=== PATIENT | female | born 1955 | race Caucasian/White ===

== ENCOUNTER → 2018-11-16 | Outpatient (CLI) | payer OTHER ==
--- NOTE | 2018-11-16 15:27 | REP ---
REASON: Pain. No priors for comparison. Five views were obtained. There is tricompartmental marginal osteophytosis, particularly affecting the medial compartment, where there is mild medial compartmental narrowing and subchondral sclerosis. Patellofemoral joint space narrowing is also noted. There is no acute fracture. IMPRESSION: Chronic changes, as described above. Electronically Signed by Justo Wynn DO 11/16/2018 04:49 P
== END ==
LOC: M WUC 13:12
PROVIDERS: ATTEND Nurse Practitioner Family
DX: M17.11 Unilateral primary osteoarthritis, right knee (principal); M25.761 Osteophyte, right knee; M25.561 Pain in right knee

== ENCOUNTER → 2019-07-06 | Outpatient (CLI) | payer MEDICARE ==
--- NOTE | 2019-07-06 12:27 | REP ---
RIGHT FOOT: Four views of the right foot are performed. No acute fracture or dislocation is seen. There is mild posterior calcaneal spurring and moderate inferior calcaneal spurring. There is a small accessory ossicle along the medial aspect of the navicular bone. There is mild hallux valgus deformity with mild joint space narrowing and subchondral sclerosis at the first metatarsophalangeal joint. There is mild diffuse narrowing of the interphalangeal joints of the 2nd through 5th toes. There are no osseous erosions characteristic of gout. IMPRESSION: Mild degenerative changes as discussed above. Electronically Signed by Jamal Rodriguez MD 07/06/2019 12:37 P
== END ==
LOC: M CLY 11:25
PROVIDERS: ATTEND Nurse Practitioner Family
DX: M77.31 Calcaneal spur, right foot (principal); M19.071 Primary osteoarthritis, right ankle and foot; M25.561 Pain in right knee

== ENCOUNTER → 2019-07-06 | Outpatient (REF) | payer MEDICARE ==
[2019-07-06 16:19] LABS: BASO # 0.1 10^3/uL (0.0-0.2); BASO % 0.7 % (0.0-1.0); EOS # 0.1 10^3/uL (0.0-0.5); EOS % 1.9 % (0.0-3.0); HEMATOCRIT 44.9 % (36.0-47.0); HEMOGLOBIN 14.6 g/dl (12.0-15.5); LYMPH # 2.2 10^3/uL (1.5-5.0); LYMPH % 30.1 % (24.0-44.0); MEAN CORPUSCULAR HEMOGLOBIN 29.3 pg (27.0-33.0); MEAN CORPUSCULAR HGB CONC 32.5 g/dl (32.0-36.5); MONO # 0.5 10^3/uL (0.0-0.8); MONO % 7.3 % (0.0-5.0); NEUTROPHILS # 4.4 10^3/uL (1.5-8.5); NEUTROPHILS % 59.7 % (36.0-66.0); PLATELET COUNT, AUTOMATED 309 10^3/uL (150-450); RED BLOOD COUNT 4.99 10^6/uL (4.00-5.40); WHITE BLOOD COUNT 7.4 10^3/uL (4.0-10.0)
[2019-07-06 16:24] LABS: ALBUMIN 3.8 GM/DL (3.2-5.2); ALT/SGPT 72 U/L (12-78); BILIRUBIN,TOTAL 0.7 MG/DL (0.2-1.0); BLOOD UREA NITROGEN 12 MG/DL (7-18); CALCIUM LEVEL 9.2 MG/DL (8.8-10.2); CARBON DIOXIDE LEVEL 30 MEQ/L (21-32); CHLORIDE LEVEL 103 MEQ/L (98-107); GLOMERULAR FILTRATION RATE > 60.0 (>45); GLUCOSE, FASTING 124 MG/DL (70-100); POTASSIUM SERUM 3.9 MEQ/L (3.5-5.1); SODIUM LEVEL 139 MEQ/L (136-145); TOTAL PROTEIN 7.4 GM/DL (6.4-8.2)
== END ==
LOC: M SFHCCLAY 11:18
PROVIDERS: ATTEND Nurse Practitioner Family
DX: M25.561 Pain in right knee (principal); M1A.0710 Idiopathic chronic gout, right ankle and foot, without tophus (tophi); G89.29 Other chronic pain

== ENCOUNTER → 2019-10-01 | Outpatient (CLI) | payer MEDICARE ==
[~2019-10-01] MED LIST: ALLO100T PO; CVS1CAP2 PO; MULTCAP PO; PHEN30CA2 PO; SYNT112T2 PO; VITA500C19 PO
[2019-10-01 12:13] LABS: BASO # 0.1 10^3/uL (0.0-0.2); BASO % 0.9 % (0.0-1.0); EOS # 0.1 10^3/uL (0.0-0.5); EOS % 2.1 % (0.0-3.0); HEMATOCRIT 46.4 % (36.0-47.0); LYMPH # 2.5 10^3/uL (1.5-5.0); LYMPH % 37.4 % (24.0-44.0); MEAN CORPUSCULAR HEMOGLOBIN 29.4 pg (27.0-33.0); MEAN CORPUSCULAR HGB CONC 32.3 g/dl (32.0-36.5); MEAN CORPUSCULAR VOLUME 90.8 fl (80.0-96.0); MONO # 0.5 10^3/uL (0.0-0.8); MONO % 7.6 % (0.0-5.0); NEUTROPHILS # 3.4 10^3/uL (1.5-8.5); NEUTROPHILS % 51.7 % (36.0-66.0); PLATELET COUNT, AUTOMATED 265 10^3/uL (150-450); RED BLOOD COUNT 5.11 10^6/uL (4.00-5.40); WHITE BLOOD COUNT 6.6 10^3/uL (4.0-10.0)
--- NOTE | 2019-10-01 12:33 | REP ---
Chest x-ray: Two views. History: Hallux valgus. Findings: The lungs are well inflated and clear. The pleural angles are sharp. Heart is not enlarged. Pulmonary vasculature is not increased. No significant bony abnormality. Impression: No active disease. Electronically Signed by Rishi Guadarrama MD 10/01/2019 12:24 P
[2019-10-01 13:08] LABS: BLOOD UREA NITROGEN 10 MG/DL (7-18); CALCIUM LEVEL 9.1 MG/DL (8.8-10.2); CARBON DIOXIDE LEVEL 29 MEQ/L (21-32); CHLORIDE LEVEL 106 MEQ/L (98-107); CREATININE FOR GFR 0.66 MG/DL (0.55-1.30); GLOMERULAR FILTRATION RATE > 60.0 (>45); GLUCOSE, FASTING 95 MG/DL (70-100); SODIUM LEVEL 139 MEQ/L (136-145)
--- NOTE | 2019-10-01 17:27 | ECGEPIP ---
[facility] Test Date: 2019-10-01 Pat Name: KAMRYN AYERS Department: Room: - Gender: Female [employer] Se[employer]: PANCHO : 1955 Requested By: Allan Mccann Order Number: [id number] Reading MD: Gato Puentes Measurements Intervals [place] Rate: 72 P: 51 KS: 137 QRS: 49 QRSD: 86 T: 58 QT: 391 QTc: 430 Interpretive Statements SINUS RHYTHM LOW QRS VOLTAGE IN PRECORDIAL LEADS POSSIBLE ANTERIOR MYOCARDIAL INFARCTION, PROBABLY OLD VS LEAD MISPLACEMENT Electronically Signed on 10-01-2019 17:27:30 EDT by Gato Puentes
== END ==
LOC: M LAB 10:55
PROVIDERS: ATTEND Podiatrist
DX: Z01.818 Encounter for other preprocedural examination (principal); M20.11 Hallux valgus (acquired), right foot; M79.671 Pain in right foot

== ENCOUNTER → 2019-10-12 | Outpatient (CLI) | payer MEDICARE | LOC: M LABSMTC 09:49 | PROVIDERS: ATTEND Anesthesiology | DX: Z01.818 Encounter for other preprocedural examination (principal); Z11.59 Encounter for screening for other viral diseases | CPT/HCPCS: C9803; U0003 ==

== ENCOUNTER 2019-10-15 08:06 | Day surgery (SDC) | payer MEDICARE ==
[~2019-10-15] VITALS: Ht 152.4 cm; Wt 65.8 kg
[~2019-10-15 08:06] MED LIST changes: +LIDOCAINE 2% 100MG/5ML SDV (FOR ANES.) As Ordered ONE; +LR 1,000 ML IV ONE; +MIDAZOLAM INJ 2MG/2ML VIAL (J2250 PER 1MG) As Ordered ONE; +ONDANSETRON 4MG/2ML VIAL As Ordered ONE; +ceFAZolin SOD 2 GM in IV 1 EA IV ONE; +fentaNYL 100 MCG/2 ML INJECTION (J3010) As Ordered ONE; +propofoL 200 MG/20 ML VIAL As Ordered ONE
[2019-10-15] MEDS ORDERED: PHENYLephrine HCL 500 MCG/5 ML (100MCG/ML) SYRINGE (J2370) As Ordered ONE (08:08)
[2019-10-15] MEDS ORDERED: ePHEDrine SULFATE 25 MG/5 ML(5MG/ML) SYRINGE As Ordered ONE (08:19)
[2019-10-15] MEDS ORDERED: propofoL 200 MG/20 ML VIAL As Ordered ONE ×2 (08:25→10:44)
[2019-10-15] MEDS ORDERED: ROPIvacaine 0.5% 30ML INJECTION (J2795 PER 1MG) As Ordered ONE (09:42)
[2019-10-15] MEDS ORDERED: BACITRACIN PWD 50,000 UNITS VIAL As Ordered ONE (09:43)
[2019-10-15] MEDS ORDERED: BUPIVACAINE HCL 0.5% 30 ML VIAL As Ordered ONE (09:43)
[2019-10-15] MEDS ORDERED: LIDOCAINE 2% MDV 20ML VIAL As Ordered ONE (09:43)
[2019-10-15] MEDS ORDERED: NEOSPORIN GU IRRIG 20 ML VIAL As Ordered ONE (09:43)
[2019-10-15] MEDS ORDERED: dexameTHASONE 4 MG/ML 1ML VIAL (J1100 PER 1MG) As Ordered ONE (09:43)
[2019-10-15] MEDS ORDERED: ACETAMINOPHEN 1000MG 100ML IV BTL (OFIRMEV) (J0131 PER 10MG) As Ordered ONE (09:59)
[2019-10-15 12:45] VITALS: BP 127/62
--- NOTE | 2019-10-16 08:51 | REP ---
REASON: Postop, status post bunionectomy. Preoperative exam, 07/06/2019, reviewed. Derotational osteotomy site is seen affixed with a single cancellous screw, which does not breach the joint space. The alignment is near anatomical. There is expected postoperative soft tissue swelling. Small plantar and retrocalcaneal heels spurs are again noted. IMPRESSION: Findings as described above. Electronically Signed by Justo Wynn DO 10/17/2019 08:28 A
== END 2019-10-15 13:00 | disposition home or self-care (01) ==
LOC: M SDC 08:06
PROVIDERS: ATTEND Podiatrist
DX: M20.11 Hallux valgus (acquired), right foot (principal); K21.9 Gastro-esophageal reflux disease without esophagitis; E03.9 Hypothyroidism, unspecified; E05.00 Thyrotoxicosis with diffuse goiter without thyrotoxic crisis or storm; Z79.899 Other long term (current) drug therapy; Z88.2 Allergy status to sulfonamides
CPT/HCPCS: 28296; 73630; 87486; 87581; 87633; 87798; 88300; 97116; 97530; C1713; J0131; J0690; J1100; J2250; J2405; J2795; J3010

== ENCOUNTER → 2019-11-09 | Outpatient (REF) | payer MEDICARE ==
[~2019-11-09] MED LIST changes: -LIDOCAINE 2% 100MG/5ML SDV (FOR ANES.) As Ordered ONE; -LR 1,000 ML IV ONE; -MIDAZOLAM INJ 2MG/2ML VIAL (J2250 PER 1MG) As Ordered ONE; -ONDANSETRON 4MG/2ML VIAL As Ordered ONE; -ceFAZolin SOD 2 GM in IV 1 EA IV ONE; -fentaNYL 100 MCG/2 ML INJECTION (J3010) As Ordered ONE; -propofoL 200 MG/20 ML VIAL As Ordered ONE
== END ==
LOC: EEVIPCON 13:22 → M SFHCCLAY 13:22
PROVIDERS: ATTEND Nurse Practitioner Family
DX: S51.002A Unspecified open wound of left elbow, initial encounter (principal); X58.XXXA Exposure to other specified factors, initial encounter; Y92.89 Other specified places as the place of occurrence of the external cause

== ENCOUNTER → 2020-02-15 | Outpatient (CLI) | payer SELFPAY | LOC: M LABSMTC 10:50 | PROVIDERS: ATTEND Pediatrics | DX: Z20.828 Contact with and (suspected) exposure to other viral communicable diseases (principal) ==

== ENCOUNTER → 2020-04-03 | Outpatient (REF) | payer MEDICARE | LOC: M SFHCCLAY 15:52 | PROVIDERS: ATTEND Nurse Practitioner Family | DX: R30.0 Dysuria (principal) ==

== ENCOUNTER → 2020-04-24 | Outpatient (REF) | payer MEDICARE ==
[2020-04-24 13:29] LABS: ALT/SGPT 47 U/L (12-78); BILIRUBIN,TOTAL 0.4 MG/DL (0.2-1.0); BLOOD UREA NITROGEN 14 MG/DL (7-18); CARBON DIOXIDE LEVEL 29 MEQ/L (21-32); CHLORIDE LEVEL 104 MEQ/L (98-107); GLOMERULAR FILTRATION RATE > 60.0 (>45); GLUCOSE, FASTING 103 MG/DL (70-100); POTASSIUM SERUM 4.1 MEQ/L (3.5-5.1); SODIUM LEVEL 139 MEQ/L (136-145); TOTAL PROTEIN 7.3 GM/DL (6.4-8.2)
== END ==
LOC: M SFHCCLAY 08:23
PROVIDERS: ATTEND Nurse Practitioner Family
DX: E11.9 Type 2 diabetes mellitus without complications (principal)

== ENCOUNTER → 2020-08-11 | Outpatient (REF) | payer MEDICARE ==
[2020-08-11 17:14] LABS: ALBUMIN 3.9 GM/DL (3.2-5.2); ALT/SGPT 32 U/L (12-78); BILIRUBIN,TOTAL 0.7 MG/DL (0.2-1.0); BLOOD UREA NITROGEN 17 MG/DL (7-18); CALCIUM LEVEL 9.2 MG/DL (8.8-10.2); CARBON DIOXIDE LEVEL 29 MEQ/L (21-32); CHLORIDE LEVEL 107 MEQ/L (98-107); CHOLESTEROL LEVEL 147 MG/DL (<200); CHOLESTEROL RISK RATIO 2.261 (<5); CREATININE FOR GFR 0.62 MG/DL (0.55-1.30); FREE T4 2.02 NG/DL (0.76-1.46); GLOMERULAR FILTRATION RATE > 60.0 (>45); GLUCOSE, FASTING 92 MG/DL (70-100); HDL CHOLESTEROL 65 MG/DL (>40); LDL CHOLESTEROL 71 MG/DL (<100); NON-HDL-C 82 MG/DL; POTASSIUM SERUM 4.3 MEQ/L (3.5-5.1); SODIUM LEVEL 140 MEQ/L (136-145); THYROID STIMULATING HORMONE < 0.005 uIU/ML (0.358-3.740); TOTAL PROTEIN 6.9 GM/DL (6.4-8.2); TRIGLYCERIDES LEVEL 57 MG/DL (<150); URIC ACID 5.9 MG/DL (2.6-6.0)
[2020-08-11 17:19] LABS: HEMOGLOBIN A1c 5.6 %
[2020-08-11 17:28] LABS: BASO # 0.1 10^3/uL (0.0-0.2); BASO % 0.9 % (0.0-1.0); EOS # 0.1 10^3/uL (0.0-0.5); EOS % 1.9 % (0.0-3.0); HEMATOCRIT 44.2 % (36.0-47.0); HEMOGLOBIN 14.3 g/dl (12.0-15.5); LYMPH # 2.3 10^3/uL (1.5-5.0); LYMPH % 33.9 % (24.0-44.0); MEAN CORPUSCULAR HEMOGLOBIN 28.8 pg (27.0-33.0); MEAN CORPUSCULAR HGB CONC 32.4 g/dl (32.0-36.5); MEAN CORPUSCULAR VOLUME 89.1 fl (80.0-96.0); MONO # 0.7 10^3/uL (0.0-0.8); MONO % 9.7 % (2.0-8.0); NEUTROPHILS # 3.6 10^3/uL (1.5-8.5); NEUTROPHILS % 53.5 % (36.0-66.0); PLATELET COUNT, AUTOMATED 251 10^3/uL (150-450); RED BLOOD COUNT 4.96 10^6/uL (4.00-5.40); WHITE BLOOD COUNT 6.7 10^3/uL (4.0-10.0)
[2020-08-11 17:33] LABS: CREATININE, URINE 73.9 MG/DL; MALB URINE SIEMENS < 5.0 MG/L; MAU/CREAT RATIO 6.7 MCG/MG (0.0-30.0)
== END ==
LOC: M SFHCCLAY 09:19
PROVIDERS: ATTEND Nurse Practitioner Family
DX: E03.9 Hypothyroidism, unspecified (principal); E11.9 Type 2 diabetes mellitus without complications; M1A.0710 Idiopathic chronic gout, right ankle and foot, without tophus (tophi)

== ENCOUNTER 2020-12-22 09:01 | Outpatient (CLI) | payer MEDICARE ==
[~2020-12-22] VITALS: Ht 152.4 cm; Wt 130.5 kg
[~2020-12-22 09:01] MED LIST changes: +ALBUTEROL 90 MCG/ACT 8GM HFA INHALER INH PRN; +ALBUTEROL SULFATE 2.5 MG/0.5 ML INH NEB SOLN INH PRN; +EPINEPHrine INJ 1 MG/ML 1ML AMP IM PRN; +NS 1,000 ML IV SCH; -PHEN30CA2 PO; +PHEN30CA21 PO; +diphenhydrAMINE 50MG/ML VIAL (J1200) IV PRN; +methylPREDNISolone 125MG 2ML VIAL IV PRN
[2020-12-22 09:15] VITALS: BP 127/60
[2020-12-22] MEDS ORDERED: CASIRIVIMAB/IMDEVIMAB 1,200 MG in NS 250 ML IV ONE (09:25)
[2020-12-22 10:03] VITALS: BP 106/59
[2020-12-22 10:30] VITALS: BP 109/55
[2020-12-22 11:01] VITALS: BP 120/52
[2020-12-22 11:44] VITALS: BP 108/57
[2020-12-22 12:49] VITALS: BP 106/55
== END 2020-12-22 12:49 | disposition home or self-care (01) ==
LOC: M OPCLI4PR 09:01
PROVIDERS: ATTEND Physician Assistant
DX: U07.1 COVID-19 (principal); Z88.2 Allergy status to sulfonamides

== ENCOUNTER → 2021-02-19 | Outpatient (REF) | payer MEDICARE ==
[~2021-02-19] MED LIST changes: -ALBUTEROL 90 MCG/ACT 8GM HFA INHALER INH PRN; -ALBUTEROL SULFATE 2.5 MG/0.5 ML INH NEB SOLN INH PRN; -EPINEPHrine INJ 1 MG/ML 1ML AMP IM PRN; -NS 1,000 ML IV SCH; +PHEN30CA2 PO; -PHEN30CA21 PO; -diphenhydrAMINE 50MG/ML VIAL (J1200) IV PRN; -methylPREDNISolone 125MG 2ML VIAL IV PRN
[2021-02-19 12:16] LABS: HEMOGLOBIN A1c 5.6 %
[2021-02-19 12:26] LABS: ALBUMIN 3.8 GM/DL (3.2-5.2); ALT/SGPT 37 U/L (12-78); BLOOD UREA NITROGEN 15 MG/DL (7-18); CARBON DIOXIDE LEVEL 29 MEQ/L (21-32); CHLORIDE LEVEL 104 MEQ/L (98-107); FREE T4 1.39 NG/DL (0.76-1.46); GLOMERULAR FILTRATION RATE > 60.0 (>45); GLUCOSE, FASTING 102 MG/DL (70-100); POTASSIUM SERUM 4.2 MEQ/L (3.5-5.1); SODIUM LEVEL 139 MEQ/L (136-145); THYROID STIMULATING HORMONE 0.046 uIU/ML (0.358-3.740)
== END ==
LOC: M SFHCCLAY 07:26
PROVIDERS: ATTEND Nurse Practitioner Family
DX: E03.9 Hypothyroidism, unspecified (principal); E11.9 Type 2 diabetes mellitus without complications

== ENCOUNTER → 2021-10-24 | Outpatient (REF) | payer MEDICARE ==
[~2021-10-24] MED LIST changes: -PHEN30CA2 PO; +PHEN30CA21 PO
[2021-10-24 18:53] LABS: ALBUMIN 3.7 GM/DL (3.2-5.2); ALT/SGPT 33 U/L (12-78); BILIRUBIN,TOTAL 0.6 MG/DL (0.2-1.0); BLOOD UREA NITROGEN 12 MG/DL (7-18); CALCIUM LEVEL 9.1 MG/DL (8.8-10.2); CARBON DIOXIDE LEVEL 28 MEQ/L (21-32); CHLORIDE LEVEL 108 MEQ/L (98-107); CREATININE FOR GFR 0.68 MG/DL (0.55-1.30); FREE T4 1.13 NG/DL (0.76-1.46); GLOMERULAR FILTRATION RATE > 60.0 (>45); GLUCOSE, FASTING 98 MG/DL (70-100); POTASSIUM SERUM 4.4 MEQ/L (3.5-5.1); SODIUM LEVEL 142 MEQ/L (136-145)
== END ==
LOC: M SFHCCLAY 10:03
PROVIDERS: ATTEND Nurse Practitioner Family
DX: E03.9 Hypothyroidism, unspecified (principal); E11.9 Type 2 diabetes mellitus without complications

== ENCOUNTER → 2022-04-25 | Outpatient (REF) | payer MEDICARE ==
[2022-04-25 12:32] LABS: BASO # 0.1 10^3/uL (0.0-0.2); BASO % 0.7 % (0.0-1.0); EOS # 0.2 10^3/uL (0.0-0.5); EOS % 1.9 % (0.0-3.0); HEMATOCRIT 43.4 % (36.0-47.0); HEMOGLOBIN 13.9 g/dl (12.0-15.5); LYMPH % 25.3 % (24.0-44.0); MEAN CORPUSCULAR HEMOGLOBIN 29.4 pg (27.0-33.0); MEAN CORPUSCULAR VOLUME 91.9 fl (80.0-96.0); MONO # 0.6 10^3/uL (0.0-0.8); NEUTROPHILS # 5.2 10^3/uL (1.5-8.5); NEUTROPHILS % 64.9 % (36.0-66.0); PLATELET COUNT, AUTOMATED 292 10^3/uL (150-450); RED BLOOD COUNT 4.72 10^6/uL (4.00-5.40)
[2022-04-25 13:00] LABS: CREATININE, URINE 152.2 MG/DL; MAU/CREAT RATIO 2.6 MCG/MG (0.0-30.0)
[2022-04-25 13:03] LABS: ALBUMIN 3.7 G/DL (3.2-5.2); ALKALINE PHOSPHATASE 109 U/L (46-116); ALT/SGPT 24 U/L (7.0-40); AST/SGOT 22 U/L (<34); BILIRUBIN,TOTAL 0.4 MG/DL (0.3-1.2); BLOOD UREA NITROGEN 11 MG/DL (9-23); CALCIUM LEVEL 8.8 MG/DL (8.3-10.6); CARBON DIOXIDE LEVEL 29 MMOL/L (20-31); CHLORIDE LEVEL 104 MMOL/L (98-107); CHOLESTEROL LEVEL 135 MG/DL (<200); CHOLESTEROL RISK RATIO 2.36 (<5); CREATININE FOR GFR 0.73 MG/DL (0.55-1.30); GLOMERULAR FILTRATION RATE > 60.0 (>45); GLUCOSE, FASTING 113 MG/DL (74-106); HDL CHOLESTEROL 57.2 MG/DL (>40); NON-HDL-C 78 MG/DL; POTASSIUM SERUM 4.6 MMOL/L (3.5-5.1); SODIUM LEVEL 142 MMOL/L (136-145); TOTAL PROTEIN 7.1 G/DL (5.7-8.2); TRIGLYCERIDES LEVEL 44 MG/DL (<150)
[2022-04-25 13:05] LABS: FREE T4 1.35 NG/DL (0.89-1.76); THYROID STIMULATING HORMONE 0.987 uIU/ML (0.55-4.78)
[2022-04-25 13:08] LABS: HEMOGLOBIN A1c 6.1 % (4.0-6.0)
== END ==
LOC: M SFHCCLAY 07:27
PROVIDERS: ATTEND Nurse Practitioner Family
DX: Z00.00 Encounter for general adult medical examination without abnormal findings (principal); E03.9 Hypothyroidism, unspecified; E11.9 Type 2 diabetes mellitus without complications

== ENCOUNTER → 2022-07-12 | Outpatient (CLI) | payer MEDICARE | LOC: M CLY 09:42 | PROVIDERS: ATTEND Physician Assistant | DX: R05.9 Cough, unspecified (principal) ==

== ENCOUNTER 2022-08-19 11:47 | Day surgery (SDC) | payer MEDICARE ==
[~2022-08-19] VITALS: Ht 152.4 cm; Wt 70.7 kg
[~2022-08-19 11:47] MED LIST changes: +ATOR40TA75 PO; +CLOB0.0548 VG; +DICL1GEL3 TOP; +DOCU-153 PO; +LEVO88TA3 PO; +METF500T13 PO; +NS 1,000 ML IV ONE; +PANT40TA29 PO; +RA N1TAB PO
[2022-08-19] MEDS ORDERED: fentaNYL 100 MCG/2 ML INJECTION As Ordered ONE (12:20)
[2022-08-19] MEDS ORDERED: propofoL 200 MG/20 ML VIAL As Ordered ONE (12:41)
[2022-08-19] MEDS ORDERED: LIDOCAINE 2% 100MG/5ML SDV (FOR ANES.) As Ordered ONE (12:41)
[2022-08-19 12:55] VITALS: BP 119/58
== END 2022-08-19 13:01 | disposition home or self-care (01) ==
LOC: M OPP 11:47
PROVIDERS: ATTEND Internal Medicine Gastroenterology
DX: R12 Heartburn (principal); Z87.891 Personal history of nicotine dependence; Z79.02 Long term (current) use of antithrombotics/antiplatelets; Z79.84 Long term (current) use of oral hypoglycemic drugs; Z79.890 Hormone replacement therapy; Z79.899 Other long term (current) drug therapy; Z88.2 Allergy status to sulfonamides
CPT/HCPCS: 43235; J3010

== ENCOUNTER → 2022-09-10 | Outpatient (REF) | payer MEDICARE ==
[~2022-09-10] MED LIST changes: -NS 1,000 ML IV ONE
[2022-09-10 19:11] LABS: BLOOD UREA NITROGEN 11 MG/DL (9-23); CREATININE FOR GFR 0.82 MG/DL (0.55-1.30); GLOMERULAR FILTRATION RATE > 60.0 (>45)
== END ==
LOC: M LABDRAWC 17:22
PROVIDERS: ATTEND Physician Assistant Medical
DX: R68.81 Early satiety (principal)

== ENCOUNTER → 2022-09-12 | Outpatient (CLI) | payer MEDICARE ==
[~2022-09-12] MED LIST changes: +GASTROGRAFIN SOLUTION 30ML As Ordered ONE; +ISOVUE-370 76% 100ML VIAL As Ordered ONE
== END ==
LOC: M RAD 13:26
PROVIDERS: ATTEND Physician Assistant Medical
DX: R10.13 Epigastric pain (principal); R68.81 Early satiety; K76.89 Other specified diseases of liver
CPT/HCPCS: 74178; Q9963; Q9967

== ENCOUNTER → 2022-10-24 | Outpatient (REF) | payer MEDICARE ==
[~2022-10-24] MED LIST changes: -GASTROGRAFIN SOLUTION 30ML As Ordered ONE; -ISOVUE-370 76% 100ML VIAL As Ordered ONE
[2022-10-24 13:53] LABS: HEMOGLOBIN A1c 6.3 % (4.0-6.0)
[2022-10-24 14:48] LABS: ALBUMIN 3.6 G/DL (3.2-5.2); ALKALINE PHOSPHATASE 93 U/L (46-116); ALT/SGPT 27 U/L (7.0-40); AST/SGOT 20 U/L (<34); BILIRUBIN,TOTAL 0.8 MG/DL (0.3-1.2); BLOOD UREA NITROGEN 10 MG/DL (9-23); CALCIUM LEVEL 8.8 MG/DL (8.3-10.6); CARBON DIOXIDE LEVEL 28 MMOL/L (20-31); CHLORIDE LEVEL 105 MMOL/L (98-107); CREATININE FOR GFR 0.69 MG/DL (0.55-1.30); GLOMERULAR FILTRATION RATE > 60.0 (>45); GLUCOSE, FASTING 97 MG/DL (74-106); POTASSIUM SERUM 4.1 MMOL/L (3.5-5.1); SODIUM LEVEL 140 MMOL/L (136-145); THYROID STIMULATING HORMONE 0.457 uIU/ML (0.55-4.78); TOTAL PROTEIN 6.8 G/DL (5.7-8.2)
== END ==
LOC: M SFHCCLAY 08:48
PROVIDERS: ATTEND Nurse Practitioner Family
DX: Z00.00 Encounter for general adult medical examination without abnormal findings (principal); E03.9 Hypothyroidism, unspecified; E11.9 Type 2 diabetes mellitus without complications

== ENCOUNTER → 2022-12-05 | Outpatient (REF) | payer MEDICARE ==
[~2022-12-05] MED LIST changes: +DICL100G10 TOP; -DICL1GEL3 TOP
[2022-12-05 18:03] LABS: FREE T4 1.16 NG/DL (0.89-1.76); THYROID STIMULATING HORMONE 4.777 uIU/ML (0.55-4.78)
== END ==
LOC: M SFHCCLAY 10:35
PROVIDERS: ATTEND Nurse Practitioner Family
DX: E03.9 Hypothyroidism, unspecified (principal)

== ENCOUNTER → 2022-12-17 | Outpatient (CLI) | payer MEDICARE | LOC: M CLY 09:31 | PROVIDERS: ATTEND Physician Assistant | DX: M17.11 Unilateral primary osteoarthritis, right knee (principal); M25.461 Effusion, right knee; M76.891 Other specified enthesopathies of right lower limb, excluding foot ==

== ENCOUNTER → 2023-03-28 | Outpatient (REF) | payer MEDICARE | LOC: M SFHCCLAY 16:02 | PROVIDERS: ATTEND Physician Assistant | DX: R30.0 Dysuria (principal); B34.9 Viral infection, unspecified ==

== ENCOUNTER → 2023-04-03 | Outpatient (REF) | payer MEDICARE | LOC: M SFHCCLAY 12:30 | PROVIDERS: ATTEND Physician Assistant | DX: N30.00 Acute cystitis without hematuria (principal) ==

== ENCOUNTER → 2023-04-10 | Outpatient (CLI) | payer MEDICARE ==
[~2023-04-10] MED LIST changes: +BENZ-18 PO; +IBUP-1022 PO; +LEVO75TA4 PO; +NITR100C2 PO
== END ==
LOC: M CLY 11:18
PROVIDERS: ATTEND Physician Assistant Medical
DX: R05.9 Cough, unspecified (principal)

== ENCOUNTER → 2023-04-10 | Outpatient (REF) | payer MEDICARE ==
[2023-04-10 19:49] LABS: LIPASE 48 U/L (12-53)
[2023-04-10 19:51] LABS: AMYLASE 66 U/L (30-118)
[2023-04-10 19:52] LABS: ALBUMIN 3.5 G/DL (3.2-5.2); ALKALINE PHOSPHATASE 120 U/L (46-116); ALT/SGPT 44 U/L (7.0-40); AST/SGOT 24 U/L (<34); BILIRUBIN,TOTAL 0.4 MG/DL (0.3-1.2); BLOOD UREA NITROGEN 11 MG/DL (9-23); CARBON DIOXIDE LEVEL 30 MMOL/L (20-31); CHLORIDE LEVEL 103 MMOL/L (98-107); CREATININE FOR GFR 0.64 MG/DL (0.55-1.30); GLOMERULAR FILTRATION RATE > 60.0 (>45); GLUCOSE, FASTING 111 MG/DL (74-106); POTASSIUM SERUM 4.3 MMOL/L (3.5-5.1); SODIUM LEVEL 138 MMOL/L (136-145); THYROID STIMULATING HORMONE 29.605 uIU/ML (0.55-4.78); TOTAL PROTEIN 7.8 G/DL (5.7-8.2)
[2023-04-10 19:53] LABS: FREE T4 0.93 NG/DL (0.89-1.76)
[2023-04-10 20:08] LABS: BASO # 0.1 10^3/uL (0.0-0.2); BASO % 1.1 % (0.0-1.0); EOS # 0.4 10^3/uL (0.0-0.5); EOS % 4.2 % (0.0-3.0); HEMATOCRIT 42.8 % (36.0-47.0); HEMOGLOBIN 13.6 g/dl (12.0-15.5); LYMPH % 21.4 % (24.0-44.0); MEAN CORPUSCULAR HEMOGLOBIN 29.6 pg (27.0-33.0); MEAN CORPUSCULAR HGB CONC 31.8 g/dl (32.0-36.5); MEAN CORPUSCULAR VOLUME 93.2 fl (80.0-96.0); MONO # 0.6 10^3/uL (0.0-0.8); MONO % 6.8 % (2.0-8.0); NEUTROPHILS # 6.1 10^3/uL (1.5-8.5); PLATELET COUNT, AUTOMATED 478 10^3/uL (150-450); RED BLOOD COUNT 4.59 10^6/uL (4.00-5.40); WHITE BLOOD COUNT 9.3 10^3/uL (4.0-10.0)
== END ==
LOC: M LABDRAWC 17:41
PROVIDERS: ATTEND Physician Assistant Medical
DX: R10.11 Right upper quadrant pain (principal); R53.81 Other malaise

== ENCOUNTER → 2023-04-10 | Outpatient (REF) | payer MEDICARE | LOC: M SFHCCLAY 13:38 | PROVIDERS: ATTEND Physician Assistant | DX: R30.0 Dysuria (principal) ==

== ENCOUNTER 2023-04-11 14:05 | Emergency (ER) | payer MEDICARE ==
[~2023-04-11] VITALS: Ht 152.4 cm; Wt 69.5 kg
[~2023-04-11 14:05] MED LIST changes: -BENZ-18 PO; -IBUP-1022 PO; -LEVO75TA4 PO; -NITR100C2 PO
[2023-04-11] MEDS ORDERED: LEVO75TA4 PO (14:38)
[2023-04-11] MEDS ORDERED: NITR100C2 PO (14:38)
[2023-04-11] MEDS ORDERED: BENZ-18 PO (14:38)
[2023-04-11] MEDS ORDERED: NS 1,000 ML IV ONE (18:55)
[2023-04-11 19:34] LABS: BASO # 0.1 10^3/uL (0.0-0.2); EOS # 0.4 10^3/uL (0.0-0.5); EOS % 3.8 % (0.0-3.0); HEMATOCRIT 43.2 % (36.0-47.0); LYMPH # 2.8 10^3/uL (1.5-5.0); LYMPH % 24.3 % (24.0-44.0); MEAN CORPUSCULAR HGB CONC 32.4 g/dl (32.0-36.5); MEAN CORPUSCULAR VOLUME 92.5 fl (80.0-96.0); MONO # 0.7 10^3/uL (0.0-0.8); MONO % 5.8 % (2.0-8.0); NEUTROPHILS # 7.6 10^3/uL (1.5-8.5); NEUTROPHILS % 64.8 % (36.0-66.0); PLATELET COUNT, AUTOMATED 455 10^3/uL (150-450); RED BLOOD COUNT 4.67 10^6/uL (4.00-5.40); WHITE BLOOD COUNT 11.7 10^3/uL (4.0-10.0)
[2023-04-11] MEDS ORDERED: ISOVUE-370 76% 100ML VIAL As Ordered ONE (19:35)
[2023-04-11 19:52] LABS: ALBUMIN 3.8 G/DL (3.2-5.2); BILIRUBIN,DIRECT 0.2 MG/DL (<0.4); BILIRUBIN,TOTAL 0.6 MG/DL (0.3-1.2); TOTAL PROTEIN 8.3 G/DL (5.7-8.2)
[2023-04-11 22:13] LABS: APPEARANCE, URINE CLEAR (CLEAR); BACTERIA, URINE AUTO NEGATIVE (NEGATIVE); BILIRUBIN, URINE AUTO NEGATIVE (NEGATIVE); BLOOD, URINE BLOOD NEGATIVE (NEGATIVE); COLOR, URINE YELLOW (YELLOW); GLUCOSE, URINE (UA) AUTO NEGATIVE (NEGATIVE); KETONE, URINE AUTO NEGATIVE (NEGATIVE); LEUKOCYTE ESTERASE, URINE AUTO NEGATIVE (NEGATIVE); NITRITE, URINE AUTO NEGATIVE (NEGATIVE); PROTEIN, URINE AUTO NEGATIVE (NEGATIVE); RBC, URINE AUTO 0 /HPF (0-3); SQUAMOUS EPITHELIAL CELL UR AU 1 /HPF (0-6); UROBILINOGEN, URINE AUTO 0.2 mg/dL (0.0-2.0); WBC, URINE AUTO 0 /HPF (0-3)
[2023-04-11 22:18] LABS: SPECIFIC GRAVITY URINE AUTO >1.060 (1.002-1.035)
[2023-04-11] MEDS ORDERED: IBUP-1022 PO (23:11)
[2023-04-11 23:30] VITALS: BP 128/72; TEMP 98.3; O2SAT 97
== END 2023-04-11 23:30 | disposition home or self-care (01) ==
LOC: M ED 14:05
DX: K80.20 Calculus of gallbladder without cholecystitis without obstruction (principal); E11.9 Type 2 diabetes mellitus without complications; E78.5 Hyperlipidemia, unspecified; K76.89 Other specified diseases of liver; Z88.2 Allergy status to sulfonamides; Z79.02 Long term (current) use of antithrombotics/antiplatelets; Z79.4 Long term (current) use of insulin; Z79.899 Other long term (current) drug therapy
CPT/HCPCS: 74177; 80047; 80076; 81001; 83690; 85025; 96360; 96361; 99284; Q9967

== ENCOUNTER → 2023-04-23 | Outpatient (CLI) | payer MEDICARE ==
[~2023-04-23] MED LIST changes: +BENZ-18 PO; +IBUP-1022 PO; +LEVO75TA4 PO; +NITR100C2 PO
== END ==
LOC: M RAD 12:10
PROVIDERS: ATTEND Nurse Practitioner Family
DX: N83.202 Unspecified ovarian cyst, left side (principal)

== ENCOUNTER → 2023-04-24 | Outpatient (REF) | payer MEDICARE ==
[2023-04-24 11:38] LABS: BASO # 0.1 10^3/uL (0.0-0.2); BASO % 0.7 % (0.0-1.0); EOS # 0.3 10^3/uL (0.0-0.5); EOS % 2.7 % (0.0-3.0); HEMATOCRIT 43.7 % (36.0-47.0); HEMOGLOBIN 13.8 g/dl (12.0-15.5); LYMPH # 2.1 10^3/uL (1.5-5.0); LYMPH % 19.9 % (24.0-44.0); MEAN CORPUSCULAR HEMOGLOBIN 29.4 pg (27.0-33.0); MEAN CORPUSCULAR HGB CONC 31.6 g/dl (32.0-36.5); MONO # 0.8 10^3/uL (0.0-0.8); MONO % 7.5 % (2.0-8.0); NEUTROPHILS # 7.4 10^3/uL (1.5-8.5); NEUTROPHILS % 68.9 % (36.0-66.0); PLATELET COUNT, AUTOMATED 339 10^3/uL (150-450); WHITE BLOOD COUNT 10.8 10^3/uL (4.0-10.0)
[2023-04-24 11:50] LABS: HEMOGLOBIN A1c 6.8 % (4.0-6.0)
[2023-04-24 12:08] LABS: ALBUMIN 3.7 G/DL (3.2-5.2); ALKALINE PHOSPHATASE 109 U/L (46-116); ALT/SGPT 25 U/L (7.0-40); AST/SGOT 18 U/L (<34); BILIRUBIN,TOTAL 0.7 MG/DL (0.3-1.2); BLOOD UREA NITROGEN 10 MG/DL (9-23); CALCIUM LEVEL 9.1 MG/DL (8.3-10.6); CARBON DIOXIDE LEVEL 30 MMOL/L (20-31); CHLORIDE LEVEL 102 MMOL/L (98-107); CHOLESTEROL LEVEL 151 MG/DL (<200); CHOLESTEROL RISK RATIO 2.73 (<5); CREATININE FOR GFR 0.68 MG/DL (0.55-1.30); GLOMERULAR FILTRATION RATE > 60.0 (>45); GLUCOSE, FASTING 162 MG/DL (74-106); HDL CHOLESTEROL 55.2 MG/DL (>40); LDL CHOLESTEROL 81.6 MG/DL (<100); NON-HDL-C 95.8 MG/DL; POTASSIUM SERUM 4.2 MMOL/L (3.5-5.1); SODIUM LEVEL 140 MMOL/L (136-145); TRIGLYCERIDES LEVEL 71 MG/DL (<150)
[2023-04-24 12:10] LABS: FREE T4 1.46 NG/DL (0.89-1.76); THYROID STIMULATING HORMONE 2.126 uIU/ML (0.55-4.78)
[2023-04-24 12:20] LABS: CREATININE, URINE 260.5 MG/DL
== END ==
LOC: M SFHCCLAY 08:33
PROVIDERS: ATTEND Nurse Practitioner Family
DX: E03.9 Hypothyroidism, unspecified (principal); E11.9 Type 2 diabetes mellitus without complications

== ENCOUNTER → 2023-04-24 | Outpatient (CLI) | payer MEDICARE ==
[~2023-04-24] MED LIST changes: +PROHANCE 279.3MG/ML 15ML VIAL ONE
== END ==
LOC: M PLAIMG 09:37
PROVIDERS: ATTEND Physician Assistant Medical
DX: Q44.6 Cystic disease of liver (principal); R10.11 Right upper quadrant pain
CPT/HCPCS: 74183; A9576

== ENCOUNTER → 2023-05-08 | Outpatient (CLI) | payer MEDICARE ==
[~2023-05-08] MED LIST changes: -PROHANCE 279.3MG/ML 15ML VIAL ONE
== END ==
LOC: M PLAIMG 12:21
PROVIDERS: ATTEND Nurse Practitioner Family
DX: R05.8 Other specified cough (principal)

== ENCOUNTER → 2023-06-09 | Outpatient (CLI) | payer MEDICARE ==
[~2023-06-09] MED LIST changes: -DOCU-153 PO; +STOO100C30 PO
== END ==
LOC: M RAD 07:49
PROVIDERS: ATTEND Nurse Practitioner Family
DX: R10.11 Right upper quadrant pain (principal); K80.20 Calculus of gallbladder without cholecystitis without obstruction
CPT/HCPCS: 78227; A9537

== ENCOUNTER → 2023-06-25 | Outpatient (CLI) | payer MEDICARE | LOC: M RAD 10:58 | PROVIDERS: ATTEND Nurse Practitioner Family | DX: N83.202 Unspecified ovarian cyst, left side (principal); R10.11 Right upper quadrant pain ==

== ENCOUNTER → 2023-07-31 | Outpatient (CLI) | payer MEDICARE ==
[~2023-07-31] MED LIST changes: +METHACHOLINE KIT (6 VIAL.NEB PREMIX) INH ONE
== END ==
LOC: M CARPUL 09:18
PROVIDERS: ATTEND Internal Medicine Pulmonary Disease
DX: R05.9 Cough, unspecified (principal)
CPT/HCPCS: 94070; 95070; J7674

== ENCOUNTER → 2023-08-22 | Outpatient (REF) | payer MEDICARE ==
[~2023-08-22] MED LIST changes: -METHACHOLINE KIT (6 VIAL.NEB PREMIX) INH ONE
[2023-08-22 17:26] LABS: HEMOGLOBIN A1c 6.4 % (4.0-6.0)
[2023-08-22 17:48] LABS: ALKALINE PHOSPHATASE 99 U/L (46-116); ALT/SGPT 36 U/L (7.0-40); AST/SGOT 29 U/L (<34); BILIRUBIN,TOTAL 0.8 MG/DL (0.3-1.2); BLOOD UREA NITROGEN 15 MG/DL (9-23); CALCIUM LEVEL 9.2 MG/DL (8.3-10.6); CARBON DIOXIDE LEVEL 29 MMOL/L (20-31); CHLORIDE LEVEL 101 MMOL/L (98-107); CREATININE FOR GFR 0.79 MG/DL (0.55-1.30); GLOMERULAR FILTRATION RATE > 60.0 (>45); GLUCOSE, FASTING 98 MG/DL (74-106); POTASSIUM SERUM 4.6 MMOL/L (3.5-5.1); SODIUM LEVEL 138 MMOL/L (136-145); TOTAL PROTEIN 7.5 G/DL (5.7-8.2)
== END ==
LOC: M SFHCCLAY 09:46
PROVIDERS: ATTEND Nurse Practitioner Family
DX: E11.9 Type 2 diabetes mellitus without complications (principal)

== ENCOUNTER → 2023-08-26 | Outpatient (REF) | payer MEDICARE ==
[2023-08-26 17:42] LABS: CARCINOEMBRYONIC ANTIGEN < 2.0 NG/ML (<2.5)
[2023-08-26 17:56] LABS: CA19-9 TUMOR MARKER,CARBOHYDRA 20.5 U/ML (<35.0)
[2023-09-02 18:07] LABS: HE4X 62.4 pmol/L (0.0-96.5); INHIBIN A ULTRASENSITIVE 0.6 pg/mL (.); INHIBIN B <7.0 pg/mL (0.0-16.9)
== END ==
LOC: M PLALAB 09:44
PROVIDERS: ATTEND Obstetrics & Gynecology
DX: N83.202 Unspecified ovarian cyst, left side (principal); R05.3 Chronic cough; E03.9 Hypothyroidism, unspecified; K21.9 Gastro-esophageal reflux disease without esophagitis; K80.20 Calculus of gallbladder without cholecystitis without obstruction; R91.1 Solitary pulmonary nodule; K76.89 Other specified diseases of liver; E11.9 Type 2 diabetes mellitus without complications; Z79.84 Long term (current) use of oral hypoglycemic drugs; Z79.52 Long term (current) use of systemic steroids; Z79.1 Long term (current) use of non-steroidal anti-inflammatories (NSAID); Z79.02 Long term (current) use of antithrombotics/antiplatelets; Z79.890 Hormone replacement therapy; Z88.2 Allergy status to sulfonamides; Z87.891 Personal history of nicotine dependence; Z78.0 Asymptomatic menopausal state; R19.00 Intra-abdominal and pelvic swelling, mass and lump, unspecified site

== ENCOUNTER → 2023-09-19 | Outpatient (CLI) | payer MEDICARE | LOC: M WHC 09:43 | PROVIDERS: ATTEND Obstetrics & Gynecology | DX: N83.209 Unspecified ovarian cyst, unspecified side (principal) ==

== ENCOUNTER → 2023-11-05 | Outpatient (CLI) | payer MEDICARE ==
[2023-11-05 19:07] LABS: BASO # 0.1 10^3/uL (0.0-0.2); BASO % 0.8 % (0.0-1.0); EOS # 0.1 10^3/uL (0.0-0.5); EOS % 1.4 % (0.0-3.0); HEMATOCRIT 45.3 % (36.0-47.0); HEMOGLOBIN 14.4 g/dl (12.0-15.5); LYMPH # 2.1 10^3/uL (1.5-5.0); LYMPH % 32.5 % (24.0-44.0); MEAN CORPUSCULAR HEMOGLOBIN 29.7 pg (27.0-33.0); MEAN CORPUSCULAR HGB CONC 31.8 g/dl (32.0-36.5); MEAN CORPUSCULAR VOLUME 93.4 fl (80.0-96.0); MONO # 0.5 10^3/uL (0.0-0.8); NEUTROPHILS # 3.7 10^3/uL (1.5-8.5); NEUTROPHILS % 57.1 % (36.0-66.0); PLATELET COUNT, AUTOMATED 231 10^3/uL (150-450); RED BLOOD COUNT 4.85 10^6/uL (4.00-5.40); WHITE BLOOD COUNT 6.5 10^3/uL (4.0-10.0)
[2023-11-05 19:25] LABS: ALKALINE PHOSPHATASE 93 U/L (46-116); ALT/SGPT 32 U/L (7.0-40); AST/SGOT 24 U/L (<34); BILIRUBIN,TOTAL 0.9 MG/DL (0.3-1.2); BLOOD UREA NITROGEN 16 MG/DL (9-23); CARBON DIOXIDE LEVEL 29 MMOL/L (20-31); CHLORIDE LEVEL 103 MMOL/L (98-107); CREATININE FOR GFR 0.74 MG/DL (0.55-1.30); GLOMERULAR FILTRATION RATE > 60.0 (>45); GLUCOSE, FASTING 86 MG/DL (74-106); POTASSIUM SERUM 3.9 MMOL/L (3.5-5.1); SODIUM LEVEL 141 MMOL/L (136-145); TOTAL PROTEIN 7.2 G/DL (5.7-8.2)
== END ==
LOC: M LRY 09:07
PROVIDERS: ATTEND Physician Assistant Medical
DX: Q44.6 Cystic disease of liver (principal)

== ENCOUNTER → 2023-11-10 | Outpatient (CLI) | payer MEDICARE | LOC: M WHC 10:16 | PROVIDERS: ATTEND Obstetrics & Gynecology | DX: N83.8 Other noninflammatory disorders of ovary, fallopian tube and broad ligament (principal); Q50.4 Embryonic cyst of fallopian tube ==

== ENCOUNTER → 2023-11-12 | Outpatient (CLI) | payer MEDICARE ==
[2023-11-12 11:31] LABS: CARCINOEMBRYONIC ANTIGEN < 2.0 NG/ML (<2.5)
[2023-11-12 11:46] LABS: CA19-9 TUMOR MARKER,CARBOHYDRA 16.3 U/ML (<35.0)
[2023-11-17 17:09] LABS: INHIBIN A ULTRASENSITIVE 0.8 pg/mL (.); INHIBIN B <7.0 pg/mL (0.0-16.9)
== END ==
LOC: M PLALAB 07:57
PROVIDERS: ATTEND Obstetrics & Gynecology
DX: N83.299 Other ovarian cyst, unspecified side (principal); D39.12 Neoplasm of uncertain behavior of left ovary

== ENCOUNTER → 2023-12-19 | Outpatient (CLI) | payer MEDICARE | LOC: M PLAIMG 12:07 | PROVIDERS: ATTEND Internal Medicine Pulmonary Disease | DX: R91.8 Other nonspecific abnormal finding of lung field (principal); R91.1 Solitary pulmonary nodule ==

== ENCOUNTER → 2023-12-29 | Outpatient (REF) | payer MEDICARE ==
[2023-12-29 17:21] LABS: BASO # 0.1 10^3/uL (0.0-0.2); BASO % 0.8 % (0.0-1.0); EOS # 0.1 10^3/uL (0.0-0.5); EOS % 1.5 % (0.0-3.0); HEMATOCRIT 45.6 % (36.0-47.0); HEMOGLOBIN 14.8 g/dl (12.0-15.5); LYMPH # 1.8 10^3/uL (1.5-5.0); LYMPH % 25.6 % (24.0-44.0); MEAN CORPUSCULAR HEMOGLOBIN 29.7 pg (27.0-33.0); MEAN CORPUSCULAR HGB CONC 32.5 g/dl (32.0-36.5); MEAN CORPUSCULAR VOLUME 91.4 fl (80.0-96.0); MONO # 0.6 10^3/uL (0.0-0.8); MONO % 8.4 % (2.0-8.0); NEUTROPHILS # 4.6 10^3/uL (1.5-8.5); NEUTROPHILS % 63.6 % (36.0-66.0); PLATELET COUNT, AUTOMATED 271 10^3/uL (150-450); RED BLOOD COUNT 4.99 10^6/uL (4.00-5.40); WHITE BLOOD COUNT 7.2 10^3/uL (4.0-10.0)
[2023-12-29 17:46] LABS: CREATININE, URINE 162.1 MG/DL; MALB URINE SIEMENS < 3.0 MG/L; MAU/CREAT RATIO 1.8 MCG/MG (0.0-30.0)
[2023-12-29 17:48] LABS: ALKALINE PHOSPHATASE 96 U/L (46-116); ALT/SGPT 25 U/L (7.0-40); AST/SGOT 18 U/L (<34); BILIRUBIN,TOTAL 0.6 MG/DL (0.3-1.2); BLOOD UREA NITROGEN 12 MG/DL (9-23); CALCIUM LEVEL 9.6 MG/DL (8.3-10.6); CARBON DIOXIDE LEVEL 32 MMOL/L (20-31); CHLORIDE LEVEL 107 MMOL/L (98-107); CHOLESTEROL LEVEL 164 MG/DL (<200); CHOLESTEROL RISK RATIO 2.42 (<5); CREATININE FOR GFR 0.76 MG/DL (0.55-1.30); GLOMERULAR FILTRATION RATE > 60.0 (>45); GLUCOSE, FASTING 100 MG/DL (74-106); HDL CHOLESTEROL 67.5 MG/DL (>40); LDL CHOLESTEROL 84.3 MG/DL (<100); NON-HDL-C 96.5 MG/DL; POTASSIUM SERUM 4.9 MMOL/L (3.5-5.1); SODIUM LEVEL 144 MMOL/L (136-145); TOTAL PROTEIN 7.5 G/DL (5.7-8.2); TRIGLYCERIDES LEVEL 61 MG/DL (<150)
[2023-12-29 17:49] LABS: FREE T4 1.59 NG/DL (0.89-1.76)
[2023-12-29 17:51] LABS: THYROID STIMULATING HORMONE 1.839 uIU/ML (0.55-4.78)
[2023-12-29 17:55] LABS: HEMOGLOBIN A1c 5.9 % (4.0-6.0)
== END ==
LOC: M SFHCCLAY 10:17
PROVIDERS: ATTEND Nurse Practitioner Family
DX: E11.9 Type 2 diabetes mellitus without complications (principal); E03.9 Hypothyroidism, unspecified; N83.202 Unspecified ovarian cyst, left side; K21.9 Gastro-esophageal reflux disease without esophagitis

== ENCOUNTER → 2024-01-05 | Outpatient (REF) | payer MEDICARE | LOC: M PLALAB 16:04 | PROVIDERS: ATTEND Obstetrics & Gynecology | DX: N94.10 Unspecified dyspareunia (principal) ==

== ENCOUNTER → 2024-01-09 | Outpatient (CLI) | payer MEDICARE ==
[~2024-01-09] MED LIST changes: +PROHANCE 279.3MG/ML 15ML VIAL ONE; -VITA500C19 PO; +VITA500C22 PO
== END ==
LOC: M PLAIMG 14:17
PROVIDERS: ATTEND Obstetrics & Gynecology
DX: N83.299 Other ovarian cyst, unspecified side (principal)
CPT/HCPCS: 72197; A9576

== ENCOUNTER → 2024-04-16 | Outpatient (REF) | payer MEDICARE ==
[~2024-04-16] MED LIST changes: -PROHANCE 279.3MG/ML 15ML VIAL ONE
[2024-04-16 14:42] LABS: BASO # 0.1 10^3/uL (0.0-0.2); BASO % 0.7 % (0.0-1.0); EOS # 0.3 10^3/uL (0.0-0.5); EOS % 3.5 % (0.0-3.0); HEMATOCRIT 43.7 % (36.0-47.0); HEMOGLOBIN 14.4 g/dl (12.0-15.5); LYMPH # 1.8 10^3/uL (1.5-5.0); LYMPH % 24.6 % (24.0-44.0); MEAN CORPUSCULAR HEMOGLOBIN 29.5 pg (27.0-33.0); MEAN CORPUSCULAR VOLUME 89.5 fl (80.0-96.0); MONO # 0.5 10^3/uL (0.0-0.8); MONO % 6.8 % (2.0-8.0); NEUTROPHILS # 4.6 10^3/uL (1.5-8.5); NEUTROPHILS % 64.1 % (36.0-66.0); PLATELET COUNT, AUTOMATED 269 10^3/uL (150-450); RED BLOOD COUNT 4.88 10^6/uL (4.00-5.40); WHITE BLOOD COUNT 7.1 10^3/uL (4.0-10.0)
[2024-04-16 14:44] LABS: ALBUMIN 3.9 G/DL (3.2-5.2); ALKALINE PHOSPHATASE 99 U/L (35-104); ALT/SGPT 59 U/L (7.0-40); AST/SGOT 34 U/L (<34); BILIRUBIN,TOTAL 0.7 MG/DL (0.3-1.2); BLOOD UREA NITROGEN 11 MG/DL (9-23); CALCIUM LEVEL 9.1 MG/DL (8.3-10.6); CARBON DIOXIDE LEVEL 29 MMOL/L (20-31); CHLORIDE LEVEL 102 MMOL/L (98-107); CREATININE FOR GFR 0.72 MG/DL (0.55-1.30); GLOMERULAR FILTRATION RATE > 60.0 (>45); GLUCOSE, FASTING 123 MG/DL (74-106); POTASSIUM SERUM 4.1 MMOL/L (3.5-5.1); SODIUM LEVEL 141 MMOL/L (136-145); TOTAL PROTEIN 7.6 G/DL (5.7-8.2)
== END ==
LOC: M LABDRAWC 13:14
PROVIDERS: ATTEND Registered Nurse General Practice
DX: R79.89 Other specified abnormal findings of blood chemistry (principal)

== ENCOUNTER → 2024-07-16 | Outpatient (REF) | payer MEDICARE ==
[2024-07-16 17:33] LABS: HEMOGLOBIN A1c 6.6 % (4.0-6.0)
[2024-07-16 17:34] LABS: ALBUMIN 4.1 G/DL (3.2-5.2); BILIRUBIN,TOTAL 0.6 MG/DL (0.3-1.2); CALCIUM LEVEL 9.6 MG/DL (8.3-10.6); CREATININE FOR GFR 0.77 MG/DL (0.55-1.30); GLOMERULAR FILTRATION RATE 82.9 (>39); POTASSIUM SERUM 4.4 MMOL/L (3.5-5.1); TOTAL PROTEIN 7.6 G/DL (5.7-8.2)
== END ==
LOC: M SFHCCLAY 11:11
PROVIDERS: ATTEND Nurse Practitioner Family
DX: E11.9 Type 2 diabetes mellitus without complications (principal)

== ENCOUNTER → 2024-11-25 | Outpatient (CLI) | payer MEDICARE ==
[~2024-11-25] MED LIST changes: -IBUP-1022 PO; +IBUP600T42 PO
== END ==
LOC: M RAD 15:12
PROVIDERS: ATTEND Obstetrics & Gynecology
DX: N83.202 Unspecified ovarian cyst, left side (principal)

== ENCOUNTER → 2025-01-20 | Outpatient (REF) | payer MEDICARE ==
[2025-01-20 18:04] LABS: BASO # 0.1 10^3/uL (0.0-0.2); BASO % 0.8 % (0.0-1.0); EOS # 0.1 10^3/uL (0.0-0.5); EOS % 1.4 % (0.0-3.0); LYMPH # 2.2 10^3/uL (1.5-5.0); LYMPH % 27.6 % (24.0-44.0); MONO # 0.6 10^3/uL (0.0-0.8); MONO % 7.6 % (2.0-8.0); NEUTROPHILS # 4.9 10^3/uL (1.5-8.5); NEUTROPHILS % 62.2 % (36.0-66.0); PLATELET COUNT, AUTOMATED 283 10^3/uL (150-450)
[2025-01-20 18:31] LABS: ALT/SGPT 43.0 U/L (7.0-40); AST/SGOT 29.0 U/L (<34); CALCIUM LEVEL 9.1 MG/DL (8.3-10.6); CARBON DIOXIDE LEVEL 30.0 MMOL/L (20-31); CHLORIDE LEVEL 103.0 MMOL/L (98-107); CHOLESTEROL LEVEL 143.0 MG/DL (<200); CHOLESTEROL RISK RATIO 2.16 (<5); CREATININE FOR GFR 0.94 MG/DL (0.55-1.30); GLOMERULAR FILTRATION RATE 65.3 (>39); LDL CHOLESTEROL 63.9 MG/DL (<100); MAGNESIUM LEVEL 2.0 MG/DL (1.8-2.4); NON-HDL-C 77.1 MG/DL; POTASSIUM SERUM 4.9 MMOL/L (3.5-5.1); SODIUM LEVEL 144.0 MMOL/L (136-145); TRIGLYCERIDES LEVEL 66.0 MG/DL (<150)
[2025-01-20 18:32] LABS: FREE T4 1.57 NG/DL (0.89-1.76)
[2025-01-20 18:50] LABS: CREATININE, URINE 228.5 MG/DL; MALB URINE SIEMENS 4.0 MG/L; MAU/CREAT RATIO 1.7 MCG/MG (0.0-30.0)
[2025-01-20 18:52] LABS: ESTIMATED AVERAGE GLUCOSE 134.0 MG/DL (60-110)
== END ==
LOC: M SFHCCLAY 10:50
PROVIDERS: ATTEND Nurse Practitioner Family
DX: E11.9 Type 2 diabetes mellitus without complications (principal); K21.9 Gastro-esophageal reflux disease without esophagitis; N83.202 Unspecified ovarian cyst, left side; E03.9 Hypothyroidism, unspecified

== ENCOUNTER → 2025-01-31 | Outpatient (CLI) | payer MEDICARE | LOC: M WHC 12:47 | PROVIDERS: ATTEND Nurse Practitioner Family | DX: Z13.820 Encounter for screening for osteoporosis (principal); M85.89 Other specified disorders of bone density and structure, multiple sites ==

== ENCOUNTER → 2025-02-11 | Outpatient (CLI) | payer MEDICARE | LOC: M RAD 10:54 | PROVIDERS: ATTEND Internal Medicine Pulmonary Disease | DX: R91.1 Solitary pulmonary nodule (principal) ==